=== PATIENT | male | born 1995 | race Two or more races ===

== ENCOUNTER 2024-01-31 10:56 | Emergency (ER) | payer MEDICAID ==
[~2024-01-31] VITALS: Ht 175.3 cm; Wt 87.0 kg
[2024-01-31 11:13] VITALS: TEMP 97.1
[2024-01-31 11:36] VITALS: BP 138/85
[2024-01-31 11:40] LABS: BASOPHILS # (AUTO) 0.1 X10'3 (0-0.2); BASOPHILS % (AUTO) 1.2 % (0-1); EOSINOPHILS # (AUTO) 0.1 X10'3 (0-0.9); EOSINOPHILS % (AUTO) 1.1 % (0-6); HEMATOCRIT 44.7 % (42.0-52.0); HEMOGLOBIN 15.3 g/dl (14.0-17.9); LYMPHOCYTES # (AUTO) 2.6 X10'3 (1.1-4.8); LYMPHOCYTES % (AUTO) 38.5 % (21-51); MEAN CORPUSCULAR HEMOGLOBIN 29.7 PG (27.0-31.0); MEAN CORPUSCULAR HGB CONC 34.3 g/dL (33.0-36.5); MEAN CORPUSCULAR VOLUME 86.6 FL (78-98); MEAN PLATELET VOLUME 7.6 FL (7.4-10.4); MONOCYTES # (AUTO) 0.5 X10'3 (0-0.9); MONOCYTES % (AUTO) 6.8 % (2-12); NEUTROPHILS # (AUTO) 3.5 X10'3 (1.8-7.7); NEUTROPHILS % (AUTO) 52.4 % (42-75); PLATELET COUNT 205 X10'3 (140-440); RED BLOOD COUNT 5.16 X10'6 (4.70-6.10); RED CELL DISTRIBUTION WIDTH 12.8 % (11.5-14.5); WHITE BLOOD COUNT 6.7 X10'3 (4.5-11.0)
[2024-01-31] MEDS: LIDOcaine 2% Viscous 15ml cup MM ONE (11:56)
[2024-01-31] MEDS: mag hydrox/Alum hydrox/simeth 30ml oral suspension PO ONE (11:56)
[2024-01-31 11:59] LABS: ANION GAP 8 (8-16); BLOOD UREA NITROGEN 7 MG/DL (7-18); BUN/CREATININE RATIO 9.6 (10.0-20.0); CHLORIDE 101 MMOL/L (99-107); CREATININE 0.73 MG/DL (0.60-1.10); GLUCOSE 98 MG/DL (70-104); POTASSIUM 4.1 MMOL/L (3.5-5.1); SODIUM 138 MMOL/L (135-145); TOTAL CARBON DIOXIDE 29.1 MMOL/L (24-32)
[2024-01-31 12:00] LABS: ALBUMIN 4.4 G/DL (3.4-5.0); CALCIUM 9.6 MG/DL (8.5-10.1); PRO BRAIN NATRIURETIC PEPTIDE < 30 PG/ML (0-125); eCRCL 153 ML/MIN; eGFR > 90 ML/MIN
[2024-01-31] MEDS: ipratropium/albuterol 3ml nebule NEB ONE (12:48)
[2024-01-31 12:50] VITALS: PULSE 68; RESP 18; O2SAT 98
[2024-01-31 12:54] VITALS: PULSE 86; RESP 18; O2SAT 99
[2024-01-31] MEDS: famotidine 20mg tablet PO ONE (13:22)
== END 2024-01-31 13:26 | disposition home or self-care (01) ==
LOC: ER 10:56
DX: M94.0 Chondrocostal junction syndrome [Tietze] (principal); R07.89 Other chest pain; J45.909 Unspecified asthma, uncomplicated; Z91.013 Allergy to seafood
CPT/HCPCS: 36415; 71045; 80048; 83880; 84484; 85025; 93005; 94640; 94760; 99285

== ENCOUNTER 2024-02-13 19:31 | Emergency (ER) | payer MEDICAID ==
[~2024-02-13] VITALS: Ht 175.3 cm; Wt 83.6 kg
[2024-02-13] MEDS ORDERED: IBUP-862 PO (21:38)
[2024-02-13] MEDS ORDERED: PSEU120T56 PO (21:38)
[2024-02-13] MEDS ORDERED: FLUT16SP2 BOTHNARES (21:38)
[2024-02-13] MEDS ORDERED: AMOX-117 PO (21:38)
[2024-02-13 22:07] VITALS: BP 129/67; PULSE 82; RESP 15; TEMP 98.5; O2SAT 99
== END 2024-02-13 22:08 | disposition home or self-care (01) ==
LOC: ER 19:31
DX: J32.9 Chronic sinusitis, unspecified (principal); R51.9 Headache, unspecified; Z91.013 Allergy to seafood
CPT/HCPCS: 70450; 99284

== ENCOUNTER 2024-02-17 12:07 | Emergency (ER) | payer MEDICAID ==
[~2024-02-17] VITALS: Ht 175.3 cm; Wt 84.5 kg
[~2024-02-17 12:07] MED LIST: AMOX-117 PO; FLUT16SP2 BOTHNARES; IBUP-862 PO; PSEU120T56 PO
[2024-02-17 13:13] VITALS: BP 142/81; PULSE 87; RESP 16; TEMP 98; O2SAT 99
== END 2024-02-17 13:16 | disposition home or self-care (01) ==
LOC: ER 12:07
DX: R19.7 Diarrhea, unspecified (principal); Z91.013 Allergy to seafood; Z79.2 Long term (current) use of antibiotics; Z79.51 Long term (current) use of inhaled steroids; Z79.1 Long term (current) use of non-steroidal anti-inflammatories (NSAID); Z79.899 Other long term (current) drug therapy
CPT/HCPCS: 99281

== ENCOUNTER 2025-03-21 10:57 | Emergency (ER) | payer MEDICAID ==
[~2025-03-21] VITALS: Ht 175.3 cm; Wt 78.2 kg
[~2025-03-21 10:57] MED LIST changes: -AMOX-117 PO
[2025-03-21 10:59] VITALS: BP 141/96; PULSE 73; RESP 15; O2SAT 100
--- NOTE | 2025-03-21 11:10 | Physician Documentation ---
History of Present Illness ~ Chief Complaint: Urinary Symptoms Stated Complaint: URINARY COMPLICATIONS Time Seen by MD: 11:28 Primary Medical Doctor: NO PMD HPI This is a 30-year-old male who presents to the emergency department reporting that he has had burning with urination for about the last week. He presented today because he is now noting reddish discoloration to his urine. He denies fevers or chills, nausea or vomiting. He does note that he completed a course of antibiotics for an H. pylori infection 15 days ago on the 06 of March. He otherwise reports that he is healthy, not taking any medications currently. Medication Reconciliation Allergies: Coded Allergies: shellfish derived (Verified Allergy, Unknown, 02/13/24) Scheduled Fluticasone Propionate (Flonase), 2 SPRAYS BOTHNARES DAILY Ibuprofen (Ibu), 1 TAB PO Q6H Pseudoephedrine HCl (Sudafed 12 Hour), 1 TAB PO Q12H Sulfamethoxazole/Trimethoprim (Septra Ds Tab), 1 TAB PO Q12H Past Medical History Past Medical History: No Pertinent History Past Surgical History: noncontributory Drug Use: none Lives In: Home Review of Systems ROS As stated above in the HPI, otherwise all systems are reviewed and negative. Physical Exam Vital Signs: Temperature: 98.1, Source: Temporal, Heart Rate: 73, Respiratory Rate: 15, BP: 141/96, Pulse Oximetry: 100, Weight: 78.180 Physical Exam General: Alert, no apparent distress. Neck: Full range of motion. Respiratory: Lungs clear, no respiratory distress. Chest: No accessory muscle use. Cardiovascular: Regular rate and rhythm, no murmurs. Gastrointestinal: Soft, nontender, nondistended. Bowels sounds present. No CVA tenderness. Extremities: Normal range of motion, no deformity. Neurologic: Oriented x4. Psychiatric: Normal mood and affect. Skin: Normal color, warm and dry. No edema, no ecchymosis. Progress Results/Orders Results/Orders Orders - MIKE WU NP Chlam/Gc Amp Ur (03/21/25 11:07) Cult Urine + [place] [address] (03/21/25 12:01) Completed Orders - MIKE WU NP Ua W/Microscopic, Cult If Ind (03/21/25 11:02) Vital Signs 03/21/25 03/21/25 10:59 12:13 Temp 98.1 98.1 Pulse 73 Resp 15 B/P (MAP) 141/96 Pulse Ox 100 Laboratory Tests Test 03/21/25 11:02 Urine Specimen Description Cln catch midstream Urine Color Straw Urine Clarity Clear Urine pH 7.0 Urine Specific [place] <=1.005 Urine Protein Trace Urine Glucose (UA) Negative Urine Ketones Negative Urine Occult Blood Large H Urine Nitrite Negative Urine Bilirubin Negative Urine Urobilinogen 0.2 Urine Leukocyte Esterase Large H Urine RBC 0-2 Urine WBC 50-100 H Urine Squamous Epithelial Cells Few Urine Bacteria Few Urine Mucus None seen Urine Culture Indicated Indicated Volume Urine Centrifuged 10 ml Urine Comment Medical Decision Making Genital Diff Dx:Considerations: Include: Abscess, Balanitis, Balanoposthitis, Cellulitis, Epididymitis, Entrapment injury, Cecelia's gangrene, Foreign body, Facture penis, Hydrocele, Inguinal hernia, Post-op Complication, Paraphimosis, Prostatitis, Priapism, Syphilis, Testicular torsion, Torsion-epididymis, Torsion-appendiceal, Urinary retention, Urethritis, Urethritis-chlamydial, Urethritis-gonococcal, UTI Additional Comment Discussed with patient that he should followup with PCP due to the fact that male UTI unusual. Discussed prostatitis as possibility. GC/Chlamydia result will be obtained through PCP. Is to return if worse. Departure Time of Disposition: 12:06 Disposition: 01 HOME / SELF CARE / HOMELESS Impression: Primary Impression: Acute urinary tract infection Condition: Stable Discharge Instructions: Urinary Tract Infection, Adult Additional Instructions: It is somewhat unusual for a young healthy male to have a urinary tract infection. Please followup with your primary care provider regarding this issue. Please return if you develop a fever, shaking chills, nausea, vomiting, or feel that you are worse in any way. Please return in two days or see your PCP at that time if no better. Your STI testing is pending at the time of your discharge. Your PCP will get t his result and can share with you at your followup. Referrals: NO PRIMARY CARE PROVIDER (PCP) Prescriptions Sulfamethoxazole/Trimethoprim (Septra Ds Tab) 800 Mg/160 Mg Tablet 1 TAB PO Q12H for 5 Days, #10 TAB Prov: MIKE WU LAB RN 03/21/25 Education Educated: Patient Educated regarding: diagnosis, treatment, prognosis, need for follow up Signature Scribe Signature: x Attestation: The note accurately reflects work and decisions made by me.Mike Parra NP 03/21/25 11:10 MIKE WU NP Mar 21, 2025 11:10
[2025-03-21 11:51] LABS: LEUKOCYTE ESTERASE ,URINE LARGE (Neg); NITRITES, URINE NEGATIVE (Neg); OCCULT BLOOD,URINE LARGE (Neg)
[2025-03-21 11:52] LABS: UA COLLECTION TYPE CLN CATCH MIDSTREAM
[2025-03-21 12:00] LABS: MUCUS STRANDS NONE SEEN /LPF (Neg); SQUAMOUS EPITHELIAL CELL,UR FEW /LPF (FEW)
[2025-03-21] MEDS ORDERED: SULF1TAB45 PO (12:08)
[2025-03-21 12:13] VITALS: TEMP 98.1
== END 2025-03-21 12:14 | disposition home or self-care (01) ==
LOC: ER 10:58
DX: N39.0 Urinary tract infection, site not specified (principal); Z91.013 Allergy to seafood
CPT/HCPCS: 36415; 81001; 87077; 87088; 87186; 87491; 99283